=== PATIENT | male | born 1970 | race Caucasian/White ===

== ENCOUNTER 2018-04-18 23:22 | Inpatient (IN) | payer MEDICAID ==
[2018-04-18 23:46] VITALS: BMI 39.1
--- NOTE | 2018-04-19 00:18 | ED PDOC ---
Arrival/HPI - General Chief Complaint: GI Problem Time Seen by Provider: 04/19/18 00:06 Historian: Patient - History of Present Illness Narrative History of Present Illness (Text): 04/19/18 00:17 Archie Almanza is a 47 year old male, whose past medical history includes bariatric surgery and diabetes, who presents to the Emergency department complaining of fever and abdominal pain. Patient states he has been experiencing fever with associated chills, shaking, diffuse abdominal pain, and back pain since yesterday. Patient notes he has been constipated for the past 5 days. Patient states he recently underwent a gastric bypass in February 2018. Patient also complaining of dark urine and dysuria. Patient denies any fever, chills, chest pain, shortness of breath, nausea, vomiting, diarrhea, neck pain, headache, dizziness, or any other complaints. PMD: Dr. Echols Symptom Onset: Gradual Symptom Course: Unchanged Activities at Onset: Light Context: Home Past Medical History - Provider Review Nursing Documentation Reviewed: Yes Family/Social History - Physician Review Nursing Documentation Reviewed: Yes Family/Social History: Unknown Family HX Allergies/Home Meds Allergies/Adverse Reactions: Allergies No Known Allergies Allergy (Verified 04/19/18 00:12) Home Medications: Home Meds Medication Instructions Recorded Confirmed No Known Home Med 04/19/18 04/19/18 Review of Systems - Physician Review All systems were reviewed & negative as marked: Yes - Review of Systems Constitutional: Fevers, Other (+chills) Eyes: Normal ENT: Normal Respiratory: Normal. absent: SOB, Cough Cardiovascular: Normal. absent: Chest Pain Gastrointestinal: Abdominal Pain, Constipation. absent: Nausea, Vomiting Genitourinary Male: Dysuria Musculoskeletal: Normal. absent: Back Pain, Neck Pain Skin: Normal. absent: Rash Neurological: Normal. absent: Headache, Dizziness Endocrine: Normal Hemo/Lymphatic: Normal Psychiatric: Normal Physical Exam Vital Signs Reviewed: Yes Vital Signs Temp Pulse Resp BP Pulse Ox 04/19/18 02:58 100.0 F H 83 18 116/64 98 04/19/18 00:55 100.5 F H 04/18/18 23:50 100.5 F H 91 H 18 114/66 97 Temperature: Febrile Blood Pressure: Normal Pulse: Regular Respiratory Rate: Normal Appearance: Positive for: Well-Appearing, Non-Toxic, Comfortable Pain Distress: None Mental Status: Positive for: Alert and Oriented X 3 - Systems Exam Head: Present: Atraumatic, Normocephalic Pupils: Present: PERRL Extroacular Muscles: Present: EOMI Conjunctiva: Present: Normal Mouth: Present: Moist Mucous Membranes Neck: Present: Normal Range of Motion Respiratory/Chest: Present: Clear to Auscultation, Good Air Exchange. No: Respiratory Distress, Accessory Muscle Use Cardiovascular: Present: Regular Rate and Rhythm, Normal S1, S2. No: Murmurs Abdomen: No: Tenderness, Distention, Peritoneal Signs Back: Present: Normal Inspection Upper Extremity: Present: Normal Inspection. No: Cyanosis, Edema Lower Extremity: Present: Normal Inspection. No: Edema Neurological: Present: GCS=15, CN II-XII Intact, Speech Normal Skin: Present: Warm, Dry, Normal Color. No: Rashes Psychiatric: Present: Alert, Oriented x 3, Normal Insight, Normal Concentration Medical Decision Making ED Course and Treatment: 04/19/18 00:17 Impression: 47 year old male complaining of fever, chills, abdominal pain, back pain, constipation, dysuria, and dark urine. Differential Diagnosis included but are not limited to: Plan: -- EKG -- Chest X-ray -- Labs, VBG, blood cultures -- Urinalysis, urine cultures -- IV fluids -- Tylenol -- Reassess and disposition Progress Notes: 04/19/18 00:45 Reviewed EKG, sinus tachycardia at [address] LAD. Non-specific ST/T wave changes. 04/19/18 03:30 CT Abdomen and Pelvis shows: Lung bases: No acute findings. No mass. No consolidation. ABDOMEN: Liver: No acute findings. No mass. Gallbladder and bile ducts: No acute findings. No calcified stones. No ductal dilation. Pancreas: No acute findings. No mass. No ductal dilation. Spleen: No acute findings. No splenomegaly. Adrenals: No acute findings. No mass. Kidneys and ureters: No acute findings. No solid mass. No hydronephrosis. Stomach and bowel: No acute findings. No obstruction. No mucosal thickening. PELVIS: Appendix: No findings to suggest acute appendicitis. Bladder: No acute findings. No mass. Reproductive: No acute findings. ABDOMEN and PELVIS: Intraperitoneal space: No acute findings. No free air. No significant fluid collection. Bones/joints: No acute fracture. No dislocation. Soft tissues: No acute findings. Vasculature: No acute findings. No abdominal aortic aneurysm. Lymph nodes: No acute findings. No enlarged lymph nodes. IMPRESSION: No acute findings. 04/19/18 03:37 Case discussed with medical office coordinator satellite communications engineer, who is aware and agrees with plan. Case discussed with Dr. Hutson, who is aware and agrees with plan. Accepts pt in to hospitalist service. Pt will go to [facility] [place] [place] observation for fever, abdominal pain, flank pain, and UTI. - Lab Interpretations Lab Results: 04/19/18 00:30 04/19/18 00:30 Lab Results 04/19/18 00:30: Sodium 140, Chloride 99, Potassium 4.2, Carbon Dioxide 28, Anion Gap 18, BUN 13, Creatinine 1.0, Est GFR ( Amer) > 60, Est GFR (Non- Af Amer) > 60, Random Glucose 101, Calcium 9.5, Total Bilirubin 1.9 H, AST 33, ALT 32, Alkaline Phosphatase 66, Total Protein 8.0, Albumin 4.6, Globulin 3.4, Albumin/Globulin Ratio 1.4 04/19/18 00:30: pO2 26 L, VBG pH 7.38, VBG pCO2 51.0, VBG HCO3 30.2 H, VBG Total CO2 31.8 H, VBG O2 Sat (Calc) 48.0, VBG Base Excess 3.9 H, VBG Potassium 4.1, Sodium 137.0, Chloride 101.0, Glucose 100, Lactate 2.0, FiO2 21.0, Venous Blood Potassium 4.1 04/19/18 00:30: PT 14.0 H, INR 1.22 H, APTT 34.0 04/19/18 00:30: WBC 9.4, RBC 4.99, Hgb 13.9 L, Hct 40.9 L, MCV 82.0, MCH 27.9, MCHC 34.0, RDW 14.6 H, Plt Count 128, MPV 10.5, Gran % 85.8 H, Lymph % (Auto) 12.7 L, [place] % (Auto) 1.3, Eos % (Auto) 0.1 L, Baso % (Auto) 0.1, Gran # 8.05 H , Lymph # (Auto) 1.2, [place] # (Auto) 0.1, Eos # (Auto) 0.0, Baso # (Auto) 0.01 04/19/18 00:25: Urine Color Yellow, Urine Appearance Sl cloudy, Urine pH 7.0, Ur Specific [place] 1.010, Urine Protein Trace H, Urine Glucose (UA) Negative, Urine Ketones Trace H, Urine Blood Negative, Urine Nitrate Positive H, Urine Bilirubin Negative, Urine Urobilinogen 2.0 H, Ur Leukocyte Esterase Moderate H, Urine RBC 0 - 2, Urine WBC 1 - 3, Ur Epithelial Cells 0 - 2, Urine Bacteria Mod I have reviewed the lab results: Yes - RAD Interpretation Radiology Orders: 04/19/18 00:19 CHEST PORTABLE [RAD] Stat 04/19/18 01:10 ABD & PELVIS IV CONTRAST ONLY [CT] Stat Sprayer Operator: Radiologist - EKG Interpretation Interpreted by ED Physician: Yes Type: 12 lead EKG - Medication Orders Current Medication Orders: Ceftriaxone Sodium (Rocephin 1 Gram Ivpb) 1 gm in 100 mls @ 200 mls/hr IV ONCE STA PRN Reason: Protocol Stop: 04/19/18 04:03 Discontinued Medications Acetaminophen (Tylenol 325mg Tab) 650 mg PO STAT STA Stop: 04/19/18 00:21 Last Admin: 04/19/18 00:55 Dose: 650 mg MAR Pain/Vitals Document 04/19/18 00:55 IT (Rec: 04/19/18 00:55 IT [id number]) Vitals Temperature (97.6 F-99.6 F) 100.5 F Temperature Source Oral Sodium Chloride (Sodium Chloride 0.9%) 1,000 mls @ 999 mls/hr IV .Q1H1M STA Stop: 04/19/18 01:20 Last Admin: 04/19/18 00:55 Dose: 999 mls/hr eMAR Start Stop Document 04/19/18 00:55 IT (Rec: 04/19/18 00:55 IT [id number]) Intravenous Solution Start Date 04/19/18 Start Time 00:55 - Scribe Statement The provider has reviewed the documentation as recorded by the Mayuribfranny Forde Provider Scribe Attestation: All medical record entries made by the Scribe were at my direction and personally dictated by me. I have reviewed the chart and agree that the record accurately reflects my personal performance of the history, physical exam, medical decision making, and the department course for this patient. I have also personally directed, reviewed, and agree with the discharge instructions and disposition. Disposition/Present on Arrival - Present on Arrival Any Indicators Present on Arrival: No History of DVT/PE: No History of Uncontrolled Diabetes: No Urinary Catheter: No History of Decub. Ulcer: No History Surgical Site Infection Following: None - Disposition Have Diagnosis and Disposition been Completed?: Yes Diagnosis: Fever, Abdominal pain, Flank pain, UTI (urinary tract infection) Disposition: HOSPITALIZED Disposition Time: 03:42 Patient Plan: Observation Condition: STABLE Forms: [employer] (Iraqi)
[2018-04-19] MEDS ORDERED: Sodium Chloride 0.9% 1,000 ML IV STA (00:20)
[2018-04-19 00:45] LABS: BASO # 0.01 K/mm3 (0.0-2.0); BASO % 0.1 % (0.0-3.0); EOS % 0.1 % (1.5-5.0); GRAN # 8.05 (1.4-6.5); GRAN % 85.8 % (50.0-68.0); HEMOGLOBIN 13.9 g/dL (14.0-18.0); LYMPH # 1.2 (1.2-3.4); LYMPH % 12.7 % (22.0-35.0); MEAN CORPUSCULAR HEMOGLOBIN 27.9 pg (25.0-35.0); MEAN PLATELET VOLUME 10.5 fl (7.0-11.0); MONO # 0.1 (0.1-0.6); MONO % 1.3 % (1.0-6.0); RBC 4.99 10^6/uL (3.5-6.1); RED CELL DISTRIBUTION WIDTH 14.6 % (11.5-14.5); WHITE BLOOD COUNT 9.4 10^3/ul (4.5-11.0)
[2018-04-19 00:49] LABS: VENOUS BLOOD GAS BASE EXCESS 3.9 mmol/L (0.0-2.0); VENOUS BLOOD GAS PO2 26 mm/Hg (30-55); VENOUS BLOOD PH 7.38 (7.32-7.43)
[2018-04-19 00:52] LABS: ALB/GLOB RATIO 1.4 (1.1-1.8); ALBUMIN 4.6 g/dL (3.0-4.8); ALT/SGPT 32 U/L (7-56); AST/SGOT 33 U/L (17-59); BLOOD UREA NITROGEN 13 mg/dL (7-21); CALCIUM 9.5 mg/dL (8.4-10.5); GFR AFRICAN-AMERICAN > 60; GFR NON-AFRICAN AMERICAN > 60
[2018-04-19 00:54] LABS: INR 1.22 (0.93-1.08)
[2018-04-19 00:59] LABS: URINE BILIRUBIN NEGATIVE (NEGATIVE); URINE BLOOD NEGATIVE (NEGATIVE); URINE GLUCOSE (UA) NEGATIVE (NEGATIVE); URINE LEUKOCYTE ESTERASE MODERATE Leu/uL (NEGATIVE); URINE PROTEIN TRACE mg/dL (<30 mg/dL)
[2018-04-19 01:05] LABS: URINE APPEARANCE SL CLOUDY (CLEAR); URINE COLOR YELLOW (YELLOW)
[2018-04-19 01:15] LABS: URINE EPITHELIAL CELLS 0 - 2 /hpf (0-5); URINE RBC 0 - 2 /hpf (0-2)
[2018-04-19 01:16] LABS: URINE BACTERIA MOD (NEG)
[2018-04-19] MEDS ORDERED: Iohexol 350 MG/100 ML VIAL ONE (01:30)
[2018-04-19] MEDS ORDERED: cefTRIAXone 1 gm 1 GM/100 ML BAG IV STA (03:34)
[2018-04-19 04:19] LABS: VENOUS BLOOD GAS BASE EXCESS -0.1 mmol/L (0.0-2.0); VENOUS BLOOD GAS PO2 183 mm/Hg (30-55); VENOUS BLOOD PH 7.43 (7.32-7.43)
[2018-04-19] MEDS ORDERED: POLYETHYLENE GLYCOL 3350 17 GM/Dose PACKET PO STA (05:40)
[2018-04-19 07:28] LABS: BASO # 0.01 K/mm3 (0.0-2.0); BASO % 0.1 % (0.0-3.0); GRAN # 10.27 (1.4-6.5); HEMOGLOBIN 12.7 g/dL (14.0-18.0); LYMPH # 1.3 (1.2-3.4); LYMPH % 10.5 % (22.0-35.0); MEAN CELL VOLUME 82.2 fl (80.0-105.0); MEAN CORPUSCULAR HEMOGLOBIN 27.9 pg (25.0-35.0); MEAN CORPUSCULAR HGB CONC 33.9 g/dl (31.0-37.0); MEAN PLATELET VOLUME 10.3 fl (7.0-11.0); MONO # 0.7 (0.1-0.6); MONO % 5.4 % (1.0-6.0); RBC 4.56 10^6/uL (3.5-6.1); RED CELL DISTRIBUTION WIDTH 14.8 % (11.5-14.5); WHITE BLOOD COUNT 12.2 10^3/ul (4.5-11.0)
[2018-04-19] MEDS ORDERED: Sodium Chloride 0.9% 500 ML IV STA (07:44)
[2018-04-19 08:00] LABS: ALB/GLOB RATIO 1.3 (1.1-1.8); ALT/SGPT 38 U/L (7-56); AST/SGOT 44 U/L (17-59); BLOOD UREA NITROGEN 10 mg/dL (7-21); CALCIUM 8.9 mg/dL (8.4-10.5); GFR AFRICAN-AMERICAN > 60; GFR NON-AFRICAN AMERICAN > 60
--- NOTE | 2018-04-19 08:55 | RAD ---
Date of service: 04/19/2018 HISTORY: Sepsis Patient COMPARISON: No prior. FINDINGS: LUNGS: No active pulmonary disease. PLEURA: No significant pleural effusion identified, no pneumothorax apparent. CARDIOVASCULAR: Normal. OSSEOUS STRUCTURES: No significant abnormalities. VISUALIZED UPPER ABDOMEN: Normal. OTHER FINDINGS: None. IMPRESSION: No active disease.
[2018-04-19] MEDS ORDERED: cefTRIAXone 1 gm 1 GM/100 ML BAG IVPB SCH (10:00)
[2018-04-19 10:06] LABS: HDL CHOLESTEROL 40 mg/dL (29-60)
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
--- NOTE | 2018-04-19 10:14 | CT ---
Date of service: 04/19/2018 PROCEDURE: CT Abdomen and Pelvis with Oral contrast. HISTORY: abdominal pain Abdominal COMPARISON: None. TECHNIQUE: Contiguous axial images of the abdomen and pelvis. . Coronal and Sagittal reformats generated. Radiation dose: Total exam DLP = 1204.69 mGy-cm. This CT exam was performed using one or more of the following dose reduction techniques: Automated exposure control, adjustment of the mA and/or kV according to patient size, and/or use of iterative reconstruction technique. Contrast dose: 96 cc Omnipaque 350 FINDINGS: LOWER THORAX: Mild passive/dependent type atelectasis both posterior lower lung barnard. No focal consolidation effusion or basilar pneumothorax. LIVER: Liver is upper limits of normal/borderline enlarged measuring nearly 19 cm in CC dimension. No obvious hepatic mass collection or calcification . GALLBLADDER AND BILE DUCTS: Gallbladder physiologically distended. No evidence of intraluminal gallbladder calculi. PANCREAS: Unremarkable. No mass. No ductal dilatation. SPLEEN: Spleen is upper limits of normal measuring nearly 13 cm in CC AP dimension. Small splenic calcification consistent with prior exposure to granulomatous disease process. ADRENALS: No adrenal lesions. . KIDNEYS AND URETERS: Kidneys demonstrate symmetric nephrograms. No evidence of nephrolithiasis or hydronephrosis. . BLADDER: Urinary bladder is incompletely distended which in part accounts thick-walled appearance however muscular hypertrophy may contribute. Cystitis not excluded. REPRODUCTIVE: Prostate gland is mildly enlarged measuring approximately 4.7 cm in transverse dimension. Prostate gland encroaches slightly into the floor of the urinary bladder. APPENDIX: There is a normal caliber partially air-filled appendix of which also contains a small appendicolith. No evidence of inflammatory changes in the adjacent mesentery to suggest acute appendicitis. BOWEL: Evaluation of the bowel is somewhat limited due to the lack of oral contrast. The stomach is incompletely distended. Apparent postoperative changes of gastric sleeve procedure however clinical correlation with surgical history recommended. The visualized loops of small bowel exhibit normal contour and caliber. No evidence of acute mechanical small bowel obstruction. Colon appears grossly unremarkable. No definitive evidence of mural wall thickening PERITONEUM: Unremarkable. No fluid collection. No free air. LYMPH NODES: Unremarkable. No enlarged lymph nodes. VASCULATURE: Unremarkable. No aortic aneurysm. BONES: Mild chronic appearing anterior stature loss of a few lower thoracic segments. No acute compression fractures. Bilateral pars interarticularis defects seen at the L4-L5 level with approximately grade 1- grade 2 spondylolisthesis. Multilevel degenerative spondylosis. OTHER FINDINGS: None. IMPRESSION: No acute intra abdominal pathology. Calcified granulomata within the splenic parenchyma consistent with prior exposure to granulomatous disease process. Postoperative changes gastric sleeve procedure. Mild prostatic enlargement which encroaches into the full urinary bladder. Urinary bladder wall slightly thickened likely due to incomplete distention to muscular hypertrophy. Correlation with urinalysis to exclude cystitis. Bilateral pars defects L4-L5 level with approximately grade 1- grade 2 spondylolisthesis. Multilevel degenerative spondylosis of the thoracic and lumbar spine
[2018-04-19 10:17] LABS: LDL CHOLESTEROL 71 mg/dL (0-129)
[2018-04-19] MEDS: Enoxaparin 40 mg Syringe SC SCH (10:40)
--- NOTE | 2018-04-19 11:22 | CARD ---
APPROVED REPORT Date of service: 04/19/2018 EKG Measurement Heart [id number] <Conclusion> Sinus tachycardia Left Anterior Mike-Block.
[2018-04-19] MEDS: Insulin Reg-LOW-Coverage SC SCH ×3 (11:41→22:00)
[2018-04-19] MEDS ORDERED: Piperacillin/Tazobact 3.375 gm 100 ML IVPB SCH (12:00)
[2018-04-19] MEDS ORDERED: Vancomycin 1gm in NS 250ml 1 GM/250 ML BAG IVPB STA (15:09)
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
[2018-04-19] MEDS: Meropenem IV 1 gm in NS 50 ML IVPB SCH ×2 (18:29→22:01)
[2018-04-20] MEDS: Meropenem IV 1 gm in NS 50 ML IVPB SCH ×3 (06:02→21:27)
[2018-04-20 06:41] LABS: BASO # 0.01 K/mm3 (0.0-2.0); BASO % 0.2 % (0.0-3.0); GRAN # 5.38 (1.4-6.5); GRAN % 90.3 % (50.0-68.0); HEMOGLOBIN 12.6 g/dL (14.0-18.0); LYMPH # 0.3 (1.2-3.4); MEAN CELL VOLUME 82.1 fl (80.0-105.0); MEAN CORPUSCULAR HEMOGLOBIN 27.8 pg (25.0-35.0); MEAN CORPUSCULAR HGB CONC 33.9 g/dl (31.0-37.0); MEAN PLATELET VOLUME 10.7 fl (7.0-11.0); MONO # 0.3 (0.1-0.6); MONO % 4.5 % (1.0-6.0); PLATELET COUNT 96 10^3/uL (120.0-450.0); RBC 4.53 10^6/uL (3.5-6.1); RED CELL DISTRIBUTION WIDTH 14.9 % (11.5-14.5)
[2018-04-20 07:13] LABS: ALB/GLOB RATIO 1.2 (1.1-1.8); ALBUMIN 3.8 g/dL (3.0-4.8); ALT/SGPT 69 U/L (7-56); AST/SGOT 65 U/L (17-59); BLOOD UREA NITROGEN 12 mg/dL (7-21); CALCIUM 8.5 mg/dL (8.4-10.5); GFR AFRICAN-AMERICAN > 60; GFR NON-AFRICAN AMERICAN > 60
[2018-04-20 08:00] LABS: LYMPHOCYTE 8 % (22.0-35.0); MONOCYTE 2 % (1.0-6.0); NEUTROPHIL 90 % (50.0-70.0); PLATELET ESTIMATE LOW (NORMAL)
[2018-04-20] MEDS: Insulin Reg-LOW-Coverage SC SCH ×4 (08:12→23:00)
--- NOTE | 2018-04-20 09:22 | CP.PCM.PN ---
<Armando Polanco - Last Filed: 04/20/18 16:04> Subjective - Date & Time of Evaluation Date of Evaluation: 04/20/18 Time of Evaluation: 10:45 - Subjective Subjective: Armando Polanco DO PGY-1, [employer] Medicine Progress Note Pt seen and examined at bedside. Pt spiked fever overnight, last temp 103 at 6 am. Pt states he still has dysuria, but denies burning with urination, flank pain, abd pain, nausea, or vomiting. Pt on IV antibiotics. Tolerated soup last night. Objective - Vital Signs/Intake and Output Vital Signs (last 24 hours): Temp Pulse Resp BP Pulse Ox 100.1 F H 100 H 20 111/74 97 04/20/18 07:05 04/20/18 06:00 04/20/18 06:00 04/20/18 06:00 04/20/18 06:00 - Medications Medications: Current Medications Enoxaparin Sodium (Lovenox) 40 mg SC DAILY [facility] PRN Reason: Protocol Last Admin: 04/19/18 10:40 Dose: 40 mg Famotidine (Pepcid) 40 mg PO HS [facility] Last Admin: 04/19/18 22:01 Dose: 40 mg Meropenem (Merrem Iv 1 Gm Premix) 50 mls @ 100 mls/hr IVPB Q8 [facility] PRN Reason: Protocol Last Admin: 04/20/18 06:02 Dose: 100 mls/hr Potassium Chloride 40 meq/ (Sodium Chloride) 1,020 mls @ 150 mls/hr IV .Q6H48M [facility] Ibuprofen (Motrin Tab) 600 mg PO Q6H PRN PRN Reason: Fever >100.4 F Insulin Human Regular (Humulin R Low) 0 units SC ACHS [facility] PRN Reason: Protocol Last Admin: 04/20/18 08:12 Dose: Not Given Tamsulosin HCl (Flomax) 0.4 mg PO DAILY [facility] Last Admin: 04/19/18 12:19 Dose: 0.4 mg Thiamine HCl (Vitamin B1 Tab) 100 mg PO DAILY [facility] Last Admin: 04/19/18 11:43 Dose: 100 mg - Labs Labs: PT 14.0 SECONDS (9.4-12.5) H 04/19/18 00:30 INR 1.22 (0.93-1.08) H 04/19/18 00:30 APTT 34.0 Seconds (25.1-36.5) 04/19/18 00:30 - Constitutional Appears: Non-toxic, No Acute Distress - Head Exam Head Exam: ATRAUMATIC, NORMAL INSPECTION, NORMOCEPHALIC - Eye Exam Eye Exam: EOMI, Normal appearance, PERRL - ENT Exam ENT Exam: Mucous Membranes Moist, Normal Oropharynx - Neck Exam Neck Exam: Full ROM, Normal Inspection - Respiratory Exam Respiratory Exam: Clear to Ausculation Bilateral, NORMAL BREATHING PATTERN - Cardiovascular Exam Cardiovascular Exam: REGULAR RHYTHM, +S1, +S2 - GI/Abdominal Exam GI & Abdominal Exam: Soft Additional comments: Mild distension, normal bowel sounds x4, mild tenderness to palpation in surgical scar areas s/p gastric sleeve procedure - Extremities Exam Extremities Exam: Full ROM, Normal Capillary Refill, Normal Inspection - Back Exam Back Exam: Full ROM, NORMAL INSPECTION - Neurological Exam Neurological Exam: Alert, Awake, CN II-XII Intact, Normal Gait, Oriented x3 - Psychiatric Exam Psychiatric exam: Normal Affect, Normal Mood - Skin Skin Exam: Dry, Intact, Normal Color, Warm Assessment and Plan - Assessment and Plan (Free Text) Assessment: 47 y o male PMHx HLD, DM, HTN, GERD, S/p bariatric surgery approx 1.5 mos ago, presented [place] [facility] [place] with a chief complaint of new onset fever and abdominal pain x 1 day, and constipation x 5 days. Urine cx growing gram neg rods, final results pending. Pt started on broad spectrum antibiotics. Plan: Acute Abdominal Pain 2/[address] AP 04/19 - mild prostatic enlargement encroaching into urinary bladder; urinary bladder wall thickening; cystitis not excluded; no evidence of small bowel obstruction Pt. w/ complaints of dysuria and lower abdominal pain Pt febrile, Motrin q 6 h PRN for fevers due to pt's elevated LFTs, T bili elevated on admission Leukocytosis resolved UA Nitrate+, and moderate leukocyte esterase Urine cx growing gram neg rods, final results pending ID Consulted, recs appreciated C/w meropenem 1 g q 8 h IVPB (day 2) S/p 1 x dose vancomycin U/s abd performed today, f/u results Continue to monitor clinically Constipation No evidence of acute obstruction on CT A+P Encourage ambulation and PO hydration Miralax PRN Low fat high fiber diet Pt had BM today, reports no diarrhea Hx DM Pt. stated no longer on metformin at home after bariatric surgery A1C pending ISS regular Cont to trend fingersticks Hx HTN Pt stated no longer on antihypertensives at home after bariatric surgery Continue to trend vitals Hx HLD C/w Pravastatin 40 mg daily Lipid panel wnl Hx GERD C/w Famotidine GI/ DVT PPX: Famotidine/ Lovenox Pt seen, examined with, and plan d/w Dr. Nguyen, attending Armando Polanco DO PGY-1, [employer] Pager #[phone] <Sunil Nguyen - Last Filed: 04/20/18 17:24> Objective - Vital Signs/Intake and Output Vital Signs (last 24 hours): Temp Pulse Resp BP Pulse Ox 98.9 F 100 H 20 111/74 97 04/20/18 11:58 04/20/18 06:00 04/20/18 06:00 04/20/18 06:00 04/20/18 06:00 - Medications Medications: Current Medications Enoxaparin Sodium (Lovenox) 40 mg SC DAILY [facility] PRN Reason: Protocol Last Admin: 04/20/18 09:50 Dose: 40 mg Famotidine (Pepcid) 40 mg PO HS [facility] Last Admin: 04/19/18 22:01 Dose: 40 mg Meropenem (Merrem Iv 1 Gm Premix) 50 mls @ 100 mls/hr IVPB Q8 [facility] PRN Reason: Protocol Last Admin: 04/20/18 13:34 Dose: 100 mls/hr Potassium Chloride 40 meq/ (Sodium Chloride) 1,020 mls @ 150 mls/hr IV .Q6H48M [facility] Last Admin: 04/20/18 09:49 Dose: 150 mls/hr Ibuprofen (Motrin Tab) 600 mg PO Q6H PRN PRN Reason: Fever >100.4 F Last Admin: 04/20/18 10:58 Dose: 600 mg Insulin Human Regular (Humulin R Low) 0 units SC ACHS [facility] PRN Reason: Protocol Last Admin: 04/20/18 12:00 Dose: Not Given Tamsulosin HCl (Flomax) 0.4 mg PO DAILY [facility] Last Admin: 04/20/18 09:50 Dose: 0.4 mg Thiamine HCl (Vitamin B1 Tab) 100 mg PO DAILY [facility] Last Admin: 04/20/18 09:50 Dose: 100 mg - Labs Labs: PT 14.0 SECONDS (9.4-12.5) H 04/19/18 00:30 INR 1.22 (0.93-1.08) H 04/19/18 00:30 APTT 34.0 Seconds (25.1-36.5) 04/19/18 00:30 Attending/Attestation - Attestation I have personally seen and examined this patient.: Yes I have fully participated in the care of the patient.: Yes I have reviewed all pertinent clinical information, including history, physical exam and plan: Yes Notes (Text): 04/20/18 17:19 47 year old male with past medical history of diabetes, hypertension and dyslipidemia who presented with fever and lower abdominal pain. CT abd/pelvis showed cystitis and mild prostatic enlargement. UCx is growing gram negative rods. Leukocytosis has improved although he continues to have fever this morning. Continue with IV antibiotics. ID is following. LFTs are elevated today. Will continue to trend. Abdominal ultrasound was done today which shows hepatomegaly, hepatic steatosis, and mild splenomegaly. Sunil Nguyen MD Hospitalist.
[2018-04-20] MEDS: Enoxaparin 40 mg Syringe SC SCH (09:50)
--- NOTE | 2018-04-20 15:45 | US ---
Date of service: 04/20/2018 HISTORY: transaminitis COMPARISON: April 19, 2018. CT abdomen and pelvis TECHNIQUE: Sonographic evaluation of the abdomen. FINDINGS: LIVER: Measures 17.3 cm. Hepatopedal blood flow. Fatty infiltration manifest ultrasonographically as increased echogenicity of the liver parenchyma. No mass. No intrahepatic bile duct dilatation. GALLBLADDER: Unremarkable. No gallstones. COMMON BILE DUCT: Measures 6.3 mm. No stones. No dilatation. PANCREAS: Obscured by overlying bowel gas. Non diagnostic assessment of the pancreas RIGHT KIDNEY: Measures 6 x 11.2cm. Normal echogenicity. No calculus, mass, or hydronephrosis. LEFT KIDNEY: Measures 5.7 x 12.7cm. Normal echogenicity. No calculus, mass, or hydronephrosis. SPLEEN: Mild splenomegaly. Orthogonal measurements 5.1 x 5 x 13.6 cm. AORTA: No aneurysmal dilatation. IVC: Unremarkable. OTHER FINDINGS: None. IMPRESSION: Hepatomegaly, hepatic steatosis without focal abnormality. Mild splenomegaly. Limitations of the existing study: Absence of oral and IV contrast in the assessment of abdominal retroperitoneal and of pelvic viscera nondiagnostic study of the pancreas
--- NOTE | 2018-04-20 22:14 | PN ---
DATE: 04/20/2018 SUBJECTIVE: The patient is in bed, in no acute distress, nontoxic. He is having fevers. PHYSICAL EXAMINATION: VITAL SIGNS: Temperature of 102.6, blood pressure is 118/50, respiratory rate of 18, heart rate 69. HEENT: Examination of HEENT is unremarkable. NECK: Supple. LUNGS: Have decreased breath sounds. HEART: Normal S1 and S2. ABDOMEN: Soft. LABORATORY DATA: Laboratory examination reveals white count of 6000, hemoglobin of 12. Chemistries are noted. BUN of 12, creatinine of 0.7. PSA is 3.7. Urinalysis is noted. HIV is nonreactive. Microbiology reveals the blood cultures are negative. Urine culture has a gram-negative rosie. The patient is on meropenem. The patient had abdominal ultrasound, although it is a limited study. Dr. Antonio Manuel writes that it is a limited study because of absence of oral and IV contrast. This is an abdominal ultrasound. ASSESSMENT AND PLAN: We will continue to follow the fever. The patient did have a CAT scan of the abdomen and pelvis, which results are reviewed. We are waiting for the identification and sensitivity of the gram-negative rosie to Urology evaluation. yMron Graham MD
[2018-04-21] MEDS: Meropenem IV 1 gm in NS 50 ML IVPB SCH ×3 (05:52→22:00)
[2018-04-21 07:39] LABS: BASO # 0.01 K/mm3 (0.0-2.0); BASO % 0.3 % (0.0-3.0); EOS % 0.3 % (1.5-5.0); GRAN # 2.34 (1.4-6.5); GRAN % 76.8 % (50.0-68.0); HEMOGLOBIN 11.8 g/dL (14.0-18.0); LYMPH # 0.5 (1.2-3.4); LYMPH % 16.7 % (22.0-35.0); MEAN CELL VOLUME 81.7 fl (80.0-105.0); MEAN CORPUSCULAR HEMOGLOBIN 26.9 pg (25.0-35.0); MEAN PLATELET VOLUME 10.8 fl (7.0-11.0); MONO # 0.2 (0.1-0.6); MONO % 5.9 % (1.0-6.0); RBC 4.38 10^6/uL (3.5-6.1); RED CELL DISTRIBUTION WIDTH 14.6 % (11.5-14.5); WHITE BLOOD COUNT 3.1 10^3/ul (4.5-11.0)
[2018-04-21 07:53] LABS: ALB/GLOB RATIO 1.1 (1.1-1.8); ALBUMIN 3.2 g/dL (3.0-4.8); ALT/SGPT 82 U/L (7-56); AST/SGOT 72 U/L (17-59); BLOOD UREA NITROGEN 10 mg/dL (7-21); CALCIUM 8.1 mg/dL (8.4-10.5); GFR AFRICAN-AMERICAN > 60; GFR NON-AFRICAN AMERICAN > 60
[2018-04-21 08:14] VITALS: RESP 20
--- NOTE | 2018-04-21 08:37 | CP.PCM.PN ---
<Armando Polanco - Last Filed: 04/21/18 13:57> Subjective - Date & Time of Evaluation Date of Evaluation: 04/21/18 Time of Evaluation: 06:45 - Subjective Subjective: Armando Polanco DO PGY-1, [employer] Medicine Progress Note Pt seen and examined at bedside. Denies any acute complaints. States his dysuria is improving, denies abdominal pain currently. Tolerating PO diet and ambulating without concerns. Pt spiking fevers overnight, given Motrin by RN. Objective - Vital Signs/Intake and Output Vital Signs (last 24 hours): Temp Pulse Resp BP Pulse Ox 97.5 F L 74 20 100/69 98 04/21/18 06:00 04/21/18 06:00 04/21/18 06:00 04/21/18 06:00 04/21/18 06:00 Intake and Output: 04/21/18 04/21/18 06:59 18:59 Intake Total 5040 Balance 5040 - Medications Medications: Current Medications Enoxaparin Sodium (Lovenox) 40 mg SC DAILY [facility] PRN Reason: Protocol Last Admin: 04/20/18 09:50 Dose: 40 mg Famotidine (Pepcid) 40 mg PO HS [facility] Last Admin: 04/20/18 21:28 Dose: 40 mg Meropenem (Merrem Iv 1 Gm Premix) 50 mls @ 100 mls/hr IVPB Q8 [facility] PRN Reason: Protocol Last Admin: 04/21/18 05:52 Dose: 100 mls/hr Potassium Chloride 40 meq/ (Sodium Chloride) 1,020 mls @ 150 mls/hr IV .Q6H48M [facility] Last Admin: 04/21/18 03:00 Dose: 150 mls/hr Ibuprofen (Motrin Tab) 600 mg PO Q6H PRN PRN Reason: Fever >100.4 F Last Admin: 04/21/18 00:29 Dose: 600 mg Insulin Human Regular (Humulin R Low) 0 units SC ACHS [facility] PRN Reason: Protocol Last Admin: 04/20/18 23:00 Dose: Not Given Tamsulosin HCl (Flomax) 0.4 mg PO DAILY [facility] Last Admin: 04/20/18 09:50 Dose: 0.4 mg Thiamine HCl (Vitamin B1 Tab) 100 mg PO DAILY [facility] Last Admin: 04/20/18 09:50 Dose: 100 mg - Labs Labs: 04/21/18 07:00 04/21/18 07:00 PT 14.0 SECONDS (9.4-12.5) H 04/19/18 00:30 INR 1.22 (0.93-1.08) H 04/19/18 00:30 APTT 34.0 Seconds (25.1-36.5) 04/19/18 00:30 - Constitutional Appears: Non-toxic, No Acute Distress - Head Exam Head Exam: ATRAUMATIC, NORMAL INSPECTION, NORMOCEPHALIC - Eye Exam Eye Exam: EOMI, Normal appearance, PERRL - ENT Exam ENT Exam: Mucous Membranes Moist, Normal Oropharynx - Neck Exam Neck Exam: Full ROM, Normal Inspection - Respiratory Exam Respiratory Exam: Clear to Ausculation Bilateral, NORMAL BREATHING PATTERN - Cardiovascular Exam Cardiovascular Exam: REGULAR RHYTHM, +S1, +S2 - GI/Abdominal Exam GI & Abdominal Exam: Soft, Normal Bowel Sounds Additional comments: No tenderness to palpation, nondistended, no suprapubic tenderness, no CVA tenderness - Extremities Exam Extremities Exam: Full ROM, Normal Capillary Refill, Normal Inspection - Back Exam Back Exam: Full ROM, NORMAL INSPECTION - Neurological Exam Neurological Exam: Alert, Awake, CN II-XII Intact, Normal Gait, Oriented x3 - Psychiatric Exam Psychiatric exam: Normal Affect, Normal Mood - Skin Skin Exam: Dry, Intact, Normal Color, Warm Assessment and Plan - Assessment and Plan (Free Text) Assessment: 47 y o male PMHx HLD, DM, HTN, GERD, S/p sleeve gastrectomy approx 1.5 mos ago, presented to [facility] [place] [facility] on 04/18/18 with a chief complaint of new onset fever and abdominal pain x 1 day, and constipation x 5 days. Urine cx growing E. coli, hadley -sensitive. Pt currently on antibiotics with fevers, dysuria and abd pain improving. Plan: Acute Abdominal Pain 2/[address] AP 04/19 - mild prostatic enlargement encroaching into urinary bladder; urinary bladder wall thickening; cystitis not excluded; no evidence of small bowel obstruction U/s abd 04/20 - hepatomegaly, hepatic steatosis without focal abnormality, mild splenomegaly. Pt. w/ complaints of dysuria and lower abdominal pain Pt febrile, Motrin q 6 h PRN for fevers, LFTs elevated, Hepatitis panel pending , T bili elevated on admission Leukocytosis resolved UA Nitrate+, and moderate leukocyte esterase Urine cx growing E. coli hadley-sensitive ID Consulted, recs appreciated C/w meropenem 1 g q 8 h IVPB (day 3) S/p 1 x dose vancomycin Continue to monitor clinically Constipation Resolved, pt had BM yesterday, continue to monitor Miralax PRN, encourage ambulation Hx DM Pt. stated no longer on metformin at home after bariatric surgery A1C 5.8 ISS regular Continue to trend fingersticks Hx HTN Pt stated no longer on antihypertensives at home after bariatric surgery Continue to trend vitals Hx HLD C/w Pravastatin 40 mg daily Lipid panel wnl Hx GERD C/w Famotidine GI/ DVT PPX: Famotidine/ Lovenox Pt seen, examined with, and plan discussed with Dr. Nguyen, attending Armando Polanco DO PGY-1, [employer] Pager #[phone] <Sunil Nguyen - Last Filed: 04/21/18 18:29> Objective - Vital Signs/Intake and Output Vital Signs (last 24 hours): Temp Pulse Resp BP Pulse Ox 98.3 F 88 20 103/73 97 04/21/18 14:00 04/21/18 14:00 04/21/18 14:00 04/21/18 14:00 04/21/18 14:00 Intake and Output: 04/21/18 04/21/18 06:59 18:59 Intake Total 5040 480 Output Total 475 Balance 5040 5 - Medications Medications: Current Medications Enoxaparin Sodium (Lovenox) 40 mg SC DAILY [facility] PRN Reason: Protocol Last Admin: 04/21/18 10:07 Dose: 40 mg Famotidine (Pepcid) 40 mg PO HS [facility] Last Admin: 04/20/18 21:28 Dose: 40 mg Meropenem (Merrem Iv 1 Gm Premix) 50 mls @ 100 mls/hr IVPB Q8 [facility] PRN Reason: Protocol Last Admin: 04/21/18 15:29 Dose: 100 mls/hr Potassium Chloride 40 meq/ (Sodium Chloride) 1,020 mls @ 150 mls/hr IV .Q6H48M [facility] Last Admin: 04/21/18 12:59 Dose: 150 mls/hr Ibuprofen (Motrin Tab) 600 mg PO Q6H PRN PRN Reason: Fever >100.4 F Last Admin: 04/21/18 10:06 Dose: 600 mg Insulin Human Regular (Humulin R Low) 0 units SC ACHS [facility] PRN Reason: Protocol Last Admin: 04/21/18 17:31 Dose: Not Given Tamsulosin HCl (Flomax) 0.4 mg PO DAILY [facility] Last Admin: 04/21/18 10:07 Dose: 0.4 mg Thiamine HCl (Vitamin B1 Tab) 100 mg PO DAILY [facility] Last Admin: 04/21/18 10:07 Dose: 100 mg - Labs Labs: 04/21/18 07:00 04/21/18 07:00 PT 14.0 SECONDS (9.4-12.5) H 04/19/18 00:30 INR 1.22 (0.93-1.08) H 04/19/18 00:30 APTT 34.0 Seconds (25.1-36.5) 04/19/18 00:30 Attending/Attestation - Attestation I have personally seen and examined this patient.: Yes I have fully participated in the care of the patient.: Yes I have reviewed all pertinent clinical information, including history, physical exam and plan: Yes Notes (Text): 04/21/18 18:27 47 year old male with past medical history of diabetes, hypertension and dyslipidemia who presented with fever and lower abdominal pain. CT abd/pelvis showed cystitis and mild prostatic enlargement. UCx is growing E Coli. Leukocytosis has improved although he continues to have intermitten fevers. He is on iv antibiotics. Consider repeat CT abd/pelvis tomorrow if fevers persistent as per ID. LFTs are mildly elevated. Will continue to monitor. Hepatitis panel was negative and abdominal ultrasound showed hepatomegaly, hepatic steatosis, and mild splenomegaly. Sunil Nguyen MD Hospitalist.
[2018-04-21] MEDS: Enoxaparin 40 mg Syringe SC SCH (10:07)
[2018-04-21 12:07] LABS: HEPATITIS A IGM NEGATIVE (NEGATIVE); HEPATITIS B CORE AB NEGATIVE (NEGATIVE)
[2018-04-21 12:19] LABS: HEPATITIS C ANTIBODY NEGATIVE (NEGATIVE)
[2018-04-21 13:41] LABS: HEPATITIS B SURFACE AG Negative (NEGATIVE)
--- NOTE | 2018-04-21 15:38 | CP.PCM.PN ---
Subjective - Date & Time of Evaluation Date of Evaluation: 04/21/18 Time of Evaluation: 11:10 - Subjective Subjective: Patient is having fevers but is feeling better, no nausea, fever spikes are fever and far in-between. No more dysuria. Objective - Vital Signs/Intake and Output Vital Signs (last 24 hours): Temp Pulse Resp BP Pulse Ox 97.5 F L 74 20 100/69 98 04/21/18 06:00 04/21/18 06:00 04/21/18 06:00 04/21/18 06:00 04/21/18 06:00 Intake and Output: 04/21/18 04/21/18 06:59 18:59 Intake Total 5040 Balance 5040 - Medications Medications: Current Medications Enoxaparin Sodium (Lovenox) 40 mg SC DAILY [facility] PRN Reason: Protocol Last Admin: 04/21/18 10:07 Dose: 40 mg Famotidine (Pepcid) 40 mg PO HS [facility] Last Admin: 04/20/18 21:28 Dose: 40 mg Meropenem (Merrem Iv 1 Gm Premix) 50 mls @ 100 mls/hr IVPB Q8 [facility] PRN Reason: Protocol Last Admin: 04/21/18 05:52 Dose: 100 mls/hr Potassium Chloride 40 meq/ (Sodium Chloride) 1,020 mls @ 150 mls/hr IV .Q6H48M [facility] Last Admin: 04/21/18 03:00 Dose: 150 mls/hr Ibuprofen (Motrin Tab) 600 mg PO Q6H PRN PRN Reason: Fever >100.4 F Last Admin: 04/21/18 10:06 Dose: 600 mg Insulin Human Regular (Humulin R Low) 0 units SC ACHS [facility] PRN Reason: Protocol Last Admin: 04/20/18 23:00 Dose: Not Given Tamsulosin HCl (Flomax) 0.4 mg PO DAILY [facility] Last Admin: 04/21/18 10:07 Dose: 0.4 mg Thiamine HCl (Vitamin B1 Tab) 100 mg PO DAILY [facility] Last Admin: 04/21/18 10:07 Dose: 100 mg - Labs Labs: 04/21/18 07:00 04/21/18 07:00 PT 14.0 SECONDS (9.4-12.5) H 04/19/18 00:30 INR 1.22 (0.93-1.08) H 04/19/18 00:30 APTT 34.0 Seconds (25.1-36.5) 04/19/18 00:30 - Constitutional Appears: Chronically Ill - Head Exam Head Exam: NORMAL INSPECTION - Neck Exam Neck Exam: absent: Meningismus - Respiratory Exam Respiratory Exam: Decreased Breath Sounds - Cardiovascular Exam Cardiovascular Exam: +S1, +S2 - GI/Abdominal Exam GI & Abdominal Exam: Soft. absent: Tenderness Assessment and Plan - Assessment and Plan (Free Text) Plan: Assessment Consider sepsis due to urinary tract infection with E.coli (consider pyelonephritis) HTN DM dyslipidemia GERD S/P bariatric surgery Plan continue Merrem day 3 and will re-check blood and urine cx because of the persistent fever - if the fever persists tomorrow, will repeat imaging of the abdomen and pelvis will continue to monitor clinically
[2018-04-21] MEDS: Insulin Reg-LOW-Coverage SC SCH ×3 (17:30→22:00)
[2018-04-21 22:51] LABS: TOTAL PSA 5.2 ng/mL (< or = 4.0)
[2018-04-22] MEDS: Meropenem IV 1 gm in NS 50 ML IVPB SCH ×3 (05:41→22:47)
[2018-04-22 06:45] LABS: BASO # 0.02 K/mm3 (0.0-2.0); BASO % 0.5 % (0.0-3.0); EOS # 0.1 (0.0-0.7); EOS % 1.6 % (1.5-5.0); GRAN # 2.18 (1.4-6.5); GRAN % 58.5 % (50.0-68.0); HEMOGLOBIN 11.5 g/dL (14.0-18.0); LYMPH % 27.6 % (22.0-35.0); MEAN CELL VOLUME 81.9 fl (80.0-105.0); MEAN CORPUSCULAR HEMOGLOBIN 27.1 pg (25.0-35.0); MEAN PLATELET VOLUME 10.7 fl (7.0-11.0); MONO # 0.4 (0.1-0.6); MONO % 11.8 % (1.0-6.0); RBC 4.25 10^6/uL (3.5-6.1); RED CELL DISTRIBUTION WIDTH 14.8 % (11.5-14.5); WHITE BLOOD COUNT 3.7 10^3/ul (4.5-11.0)
[2018-04-22 07:14] LABS: ALBUMIN 3.1 g/dL (3.0-4.8); ALT/SGPT 87 U/L (7-56); AST/SGOT 71 U/L (17-59); BLOOD UREA NITROGEN 9 mg/dL (7-21); CALCIUM 8.2 mg/dL (8.4-10.5); GFR AFRICAN-AMERICAN > 60; GFR NON-AFRICAN AMERICAN > 60
[2018-04-22] MEDS: Enoxaparin 40 mg Syringe SC SCH (09:36)
--- NOTE | 2018-04-22 11:46 | CT ---
Date of service: 04/22/2018 PROCEDURE: CT Abdomen and Pelvis without intravenous contrast HISTORY: r/0 pyelo COMPARISON: None. TECHNIQUE: Technique. Contrast dose: None Radiation dose: Total exam DLP = 1100 mGy-cm. This CT exam was performed using one or more of the following dose reduction techniques: Automated exposure control, adjustment of the mA and/or kV according to patient size, and/or use of iterative reconstruction technique. FINDINGS: LOWER THORAX: Small pleural effusions. Suture line in the stomach LIVER: Unremarkable. No gross lesion or ductal dilatation. GALLBLADDER AND BILE DUCTS: Unremarkable. PANCREAS: Unremarkable. No gross lesion or ductal dilatation. SPLEEN: Unremarkable. ADRENALS: Unremarkable. No mass. KIDNEYS AND URETERS: Unremarkable. No hydronephrosis. No solid mass. VASCULATURE: Unremarkable. No aortic aneurysm. BOWEL: Unremarkable. No obstruction. No gross mural thickening. APPENDIX: Unremarkable. Normal appendix. PERITONEUM: Minimal free fluid in the pelvis LYMPH NODES: Unremarkable. No enlarged lymph nodes. BLADDER: Unremarkable. REPRODUCTIVE: Unremarkable. 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 IMPRESSION: No acute intra-abdominal findings. No evidence of hydronephrosis or perinephric stranding
--- NOTE | 2018-04-22 12:50 | CP.PCM.PN ---
<Armando Polanco - Last Filed: 04/22/18 21:21> Subjective - Date & Time of Evaluation Date of Evaluation: 04/22/18 Time of Evaluation: 07:40 - Subjective Subjective: Armando Polanco DO PGY-1, [employer] Medicine Progress Note Pt seen and examined at bedside. Per overnight report pt could not sleep due to bouts of low grade fever. Tmax 100.5 at 22:00 last night. Pt denied chills, states he has been able to tolerate PO diet. Pt states he has decreased pain with urination and dysuria, denied flank pain. Objective - Vital Signs/Intake and Output Vital Signs (last 24 hours): Temp Pulse Resp BP Pulse Ox 97.9 F 68 20 100/78 100 04/22/18 06:00 04/22/18 06:00 04/22/18 06:00 04/22/18 06:00 04/22/18 06:00 Intake and Output: 04/22/18 04/22/18 06:59 18:59 Intake Total 3600 Balance 3600 - Medications Medications: Current Medications Enoxaparin Sodium (Lovenox) 40 mg SC DAILY [facility] PRN Reason: Protocol Last Admin: 04/22/18 09:36 Dose: 40 mg Famotidine (Pepcid) 40 mg PO HS [facility] Last Admin: 04/21/18 22:00 Dose: 40 mg Meropenem (Merrem Iv 1 Gm Premix) 50 mls @ 100 mls/hr IVPB Q8 [facility] PRN Reason: Protocol Last Admin: 04/22/18 05:41 Dose: 100 mls/hr Potassium Chloride 40 meq/ (Sodium Chloride) 1,020 mls @ 150 mls/hr IV .Q6H48M [facility] Last Admin: 04/22/18 05:42 Dose: 150 mls/hr Ibuprofen (Motrin Tab) 600 mg PO Q6H PRN PRN Reason: Fever >100.4 F Last Admin: 04/21/18 22:56 Dose: 600 mg Insulin Human Regular (Humulin R Low) 0 units SC ACHS [facility] PRN Reason: Protocol Last Admin: 04/21/18 22:00 Dose: Not Given Tamsulosin HCl (Flomax) 0.4 mg PO DAILY [facility] Last Admin: 04/22/18 09:36 Dose: 0.4 mg Thiamine HCl (Vitamin B1 Tab) 100 mg PO DAILY [facility] Last Admin: 04/22/18 09:36 Dose: 100 mg - Labs Labs: 04/22/18 06:20 04/22/18 06:20 PT 14.0 SECONDS (9.4-12.5) H 04/19/18 00:30 INR 1.22 (0.93-1.08) H 04/19/18 00:30 APTT 34.0 Seconds (25.1-36.5) 04/19/18 00:30 - Constitutional Appears: Non-toxic, No Acute Distress - Head Exam Head Exam: ATRAUMATIC, NORMAL INSPECTION, NORMOCEPHALIC - Eye Exam Eye Exam: EOMI, Normal appearance, PERRL - ENT Exam ENT Exam: Mucous Membranes Moist, Normal Oropharynx - Neck Exam Neck Exam: Full ROM, Normal Inspection - Respiratory Exam Respiratory Exam: Clear to Ausculation Bilateral, NORMAL BREATHING PATTERN - Cardiovascular Exam Cardiovascular Exam: REGULAR RHYTHM, +S1, +S2 - GI/Abdominal Exam GI & Abdominal Exam: Soft, Normal Bowel Sounds Additional comments: No abdominal tenderness to palpation, no suprapubic tenderness, neg CVA tenderness b/l - Extremities Exam Extremities Exam: Full ROM, Normal Capillary Refill, Normal Inspection - Back Exam Back Exam: Full ROM, NORMAL INSPECTION - Neurological Exam Neurological Exam: Alert, Awake, CN II-XII Intact, Normal Gait, Oriented x3 - Psychiatric Exam Psychiatric exam: Normal Affect, Normal Mood - Skin Skin Exam: Dry, Intact, Normal Color, Warm Assessment and Plan - Assessment and Plan (Free Text) Assessment: 47 y o male PMHx HLD, DM, HTN, GERD, 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 Urine cx growing E. coli, hadley -sensitive. Pt currently on antibiotics with fevers, dysuria and abd pain improving. Plan: Acute Abdominal Pain 2/[address] AP 04/19 - mild prostatic enlargement encroaching into urinary bladder; urinary bladder wall thickening; cystitis not excluded; no evidence of small bowel obstruction Repeat CT AP 04/22: no acute intraabdominal findings, no perinephric stranding or hydronephrosis U/s abd 04/20 - hepatomegaly, hepatic steatosis without focal abnormality, mild splenomegaly. Pt. w/ complaints of dysuria and lower abdominal pain, improving since admission Pt febrile, Motrin q 6 h PRN for fevers, LFTs elevated, Hepatitis panel neg, T bili elevated on admission Leukocytosis resolved UA Nitrate+, and moderate leukocyte esterase Urine cx growing E. coli hadley-sensitive ID Consulted, recs appreciated C/w meropenem 1 g q 8 h IVPB (day 4) S/p 1 x dose vancomycin Continue to monitor clinically Constipation Resolved, pt having BM, continue to monitor Miralax PRN, encourage ambulation Hx DM Pt. stated no longer on metformin at home after bariatric surgery A1C 5.8 ISS regular Continue to trend fingersticks Hx HTN Pt stated no longer on antihypertensives at home after bariatric surgery Continue to trend vitals Hx HLD C/w Pravastatin 40 mg daily Lipid panel wnl Hx GERD C/w Famotidine GI/ DVT PPX: Famotidine/ Lovenox Pt seen, examined with, and plan discussed with Dr. Nguyen, attending Armando Polanco DO PGY-1, [employer] Pager #[phone] <Sunil Nguyen - Last Filed: 04/23/18 07:20> Objective - Vital Signs/Intake and Output Vital Signs (last 24 hours): Temp Pulse Resp BP Pulse Ox 98.8 F 84 20 103/71 97 04/22/18 14:00 04/22/18 14:00 04/22/18 14:00 04/22/18 14:00 04/22/18 14:00 - Medications Medications: Current Medications Enoxaparin Sodium (Lovenox) 40 mg SC DAILY [facility] PRN Reason: Protocol Last Admin: 04/22/18 09:36 Dose: 40 mg Famotidine (Pepcid) 40 mg PO HS [facility] Last Admin: 04/22/18 22:48 Dose: 40 mg Meropenem (Merrem Iv 1 Gm Premix) 50 mls @ 100 mls/hr IVPB Q8 [facility] PRN Reason: Protocol Last Admin: 04/23/18 06:06 Dose: 100 mls/hr Potassium Chloride 40 meq/ (Sodium Chloride) 1,020 mls @ 150 mls/hr IV .Q6H48M [facility] Last Admin: 04/22/18 05:42 Dose: 150 mls/hr Ibuprofen (Motrin Tab) 600 mg PO Q6H PRN PRN Reason: Fever >100.4 F Last Admin: 04/21/18 22:56 Dose: 600 mg Insulin Human Regular (Humulin R Low) 0 units SC ACHS [facility] PRN Reason: Protocol Last Admin: 04/22/18 22:43 Dose: Not Given Tamsulosin HCl (Flomax) 0.4 mg PO DAILY [facility] Last Admin: 04/22/18 09:36 Dose: 0.4 mg Thiamine HCl (Vitamin B1 Tab) 100 mg PO DAILY [facility] Last Admin: 04/22/18 09:36 Dose: 100 mg - Labs Labs: 04/23/18 06:00 04/22/18 06:20 PT 14.0 SECONDS (9.4-12.5) H 04/19/18 00:30 INR 1.22 (0.93-1.08) H 04/19/18 00:30 APTT 34.0 Seconds (25.1-36.5) 04/19/18 00:30 Attending/Attestation - Attestation I have personally seen and examined this patient.: Yes I have fully participated in the care of the patient.: Yes I have reviewed all pertinent clinical information, including history, physical exam and plan: Yes Notes (Text): 04/22/18 47 year old male with past medical history of diabetes, hypertension and dyslipidemia who presented with fever and lower abdominal pain. CT abd/pelvis showed cystitis and mild prostatic enlargement. UCx is growing E Coli. Leukocytosis has improved. Fever trend has come down (tmax on 100.5 last night) . Repeat CT abd/pelvis today was negative. He is on iv antibiotics; ID is following. LFTs are mildly elevated. Will continue to monitor. Hepatitis panel was negative and abdominal ultrasound showed hepatomegaly, hepatic steatosis, and mild splenomegaly. Sunil Nguyen MD Hospitalist.
--- NOTE | 2018-04-22 15:52 | CP.PCM.PN ---
Subjective - Date & Time of Evaluation Date of Evaluation: 04/22/18 Time of Evaluation: 11:55 - Subjective Subjective: Still had low grade fever overnight but the patient did not have chills, feeling better today. Objective - Vital Signs/Intake and Output Vital Signs (last 24 hours): Temp Pulse Resp BP Pulse Ox 98.8 F 84 20 103/71 97 04/22/18 14:00 04/22/18 14:00 04/22/18 14:00 04/22/18 14:00 04/22/18 14:00 Intake and Output: 04/22/18 04/22/18 06:59 18:59 Intake Total 3600 720 Balance 3600 720 - Medications Medications: Current Medications Enoxaparin Sodium (Lovenox) 40 mg SC DAILY [facility] PRN Reason: Protocol Last Admin: 04/22/18 09:36 Dose: 40 mg Famotidine (Pepcid) 40 mg PO HS [facility] Last Admin: 04/21/18 22:00 Dose: 40 mg Meropenem (Merrem Iv 1 Gm Premix) 50 mls @ 100 mls/hr IVPB Q8 [facility] PRN Reason: Protocol Last Admin: 04/22/18 15:29 Dose: 100 mls/hr Potassium Chloride 40 meq/ (Sodium Chloride) 1,020 mls @ 150 mls/hr IV .Q6H48M [facility] Last Admin: 04/22/18 05:42 Dose: 150 mls/hr Ibuprofen (Motrin Tab) 600 mg PO Q6H PRN PRN Reason: Fever >100.4 F Last Admin: 04/21/18 22:56 Dose: 600 mg Insulin Human Regular (Humulin R Low) 0 units SC ACHS [facility] PRN Reason: Protocol Last Admin: 04/21/18 22:00 Dose: Not Given Tamsulosin HCl (Flomax) 0.4 mg PO DAILY [facility] Last Admin: 04/22/18 09:36 Dose: 0.4 mg Thiamine HCl (Vitamin B1 Tab) 100 mg PO DAILY [facility] Last Admin: 04/22/18 09:36 Dose: 100 mg - Labs Labs: 04/22/18 06:20 04/22/18 06:20 PT 14.0 SECONDS (9.4-12.5) H 04/19/18 00:30 INR 1.22 (0.93-1.08) H 04/19/18 00:30 APTT 34.0 Seconds (25.1-36.5) 04/19/18 00:30 - Constitutional Appears: Chronically Ill - Head Exam Head Exam: NORMAL INSPECTION - Neck Exam Neck Exam: absent: Meningismus - Respiratory Exam Respiratory Exam: Decreased Breath Sounds - Cardiovascular Exam Cardiovascular Exam: +S1, +S2 - GI/Abdominal Exam GI & Abdominal Exam: Soft. absent: Tenderness Assessment and Plan - Assessment and Plan (Free Text) Plan: Assessment Consider sepsis due to urinary tract infection with E.coli (consider pyelonephritis) HTN DM dyslipidemia GERD S/P bariatric surgery Plan on Merrem day 4 repeat blood cx are negative, repeat imaging of the abdomen and pelvis did not show acute intra-abdominal infection - should complete 10-14 days of antibiotics and can be switched to PO antibiotics when ready for discharge
[2018-04-22] MEDS: Insulin Reg-LOW-Coverage SC SCH ×2 (19:06→22:43)
[2018-04-23] MEDS: Meropenem IV 1 gm in NS 50 ML IVPB SCH (06:06)
[2018-04-23 06:56] LABS: BASO # 0.01 K/mm3 (0.0-2.0); BASO % 0.3 % (0.0-3.0); EOS # 0.1 (0.0-0.7); EOS % 1.6 % (1.5-5.0); GRAN # 2.23 (1.4-6.5); GRAN % 59.6 % (50.0-68.0); HEMOGLOBIN 12.1 g/dL (14.0-18.0); LYMPH % 26.2 % (22.0-35.0); MEAN CELL VOLUME 81.2 fl (80.0-105.0); MEAN CORPUSCULAR HEMOGLOBIN 26.8 pg (25.0-35.0); MEAN CORPUSCULAR HGB CONC 33.1 g/dl (31.0-37.0); MEAN PLATELET VOLUME 10.6 fl (7.0-11.0); MONO # 0.5 (0.1-0.6); MONO % 12.3 % (1.0-6.0); RBC 4.51 10^6/uL (3.5-6.1); RED CELL DISTRIBUTION WIDTH 14.9 % (11.5-14.5); WHITE BLOOD COUNT 3.7 10^3/ul (4.5-11.0)
[2018-04-23 07:26] LABS: ALBUMIN 3.1 g/dL (3.0-4.8); ALT/SGPT 71 U/L (7-56); AST/SGOT 48 U/L (17-59); BLOOD UREA NITROGEN 10 mg/dL (7-21); CALCIUM 8.3 mg/dL (8.4-10.5); GFR AFRICAN-AMERICAN > 60; GFR NON-AFRICAN AMERICAN > 60
[2018-04-23 07:41] VITALS: BP 116/78; PULSE 79; TEMP 98.4; O2SAT 99
[2018-04-23] MEDS: Enoxaparin 40 mg Syringe SC SCH (09:43)
[2018-04-23] MEDS: Insulin Reg-LOW-Coverage SC SCH (09:43)
--- NOTE | 2018-04-23 15:14 | CP.PCM.PN ---
Subjective - Date & Time of Evaluation Date of Evaluation: 04/23/18 Time of Evaluation: 12:35 - Subjective Subjective: No more fevers, no abdominal pain, no dysuria currently. Objective - Vital Signs/Intake and Output Vital Signs (last 24 hours): Temp Pulse Resp BP Pulse Ox 98.4 F 79 20 116/78 99 04/23/18 06:00 04/23/18 06:00 04/23/18 06:00 04/23/18 06:00 04/23/18 06:00 - Medications Medications: Current Medications Enoxaparin Sodium (Lovenox) 40 mg SC DAILY [facility] PRN Reason: Protocol Last Admin: 04/23/18 09:43 Dose: 40 mg Famotidine (Pepcid) 40 mg PO HS [facility] Last Admin: 04/22/18 22:48 Dose: 40 mg Meropenem (Merrem Iv 1 Gm Premix) 50 mls @ 100 mls/hr IVPB Q8 [facility] PRN Reason: Protocol Last Admin: 04/23/18 06:06 Dose: 100 mls/hr Potassium Chloride 40 meq/ (Sodium Chloride) 1,020 mls @ 150 mls/hr IV .Q6H48M [facility] Last Admin: 04/22/18 05:42 Dose: 150 mls/hr Ibuprofen (Motrin Tab) 600 mg PO Q6H PRN PRN Reason: Fever >100.4 F Last Admin: 04/21/18 22:56 Dose: 600 mg Insulin Human Regular (Humulin R Low) 0 units SC ACHS [facility] PRN Reason: Protocol Last Admin: 04/23/18 09:43 Dose: Not Given Tamsulosin HCl (Flomax) 0.4 mg PO DAILY [facility] Last Admin: 04/23/18 09:43 Dose: 0.4 mg Thiamine HCl (Vitamin B1 Tab) 100 mg PO DAILY [facility] Last Admin: 04/23/18 09:43 Dose: 100 mg - Labs Labs: 04/23/18 06:00 04/23/18 06:00 PT 14.0 SECONDS (9.4-12.5) H 04/19/18 00:30 INR 1.22 (0.93-1.08) H 04/19/18 00:30 APTT 34.0 Seconds (25.1-36.5) 04/19/18 00:30 - Constitutional Appears: Non-toxic, Chronically Ill - Head Exam Head Exam: NORMAL INSPECTION - ENT Exam ENT Exam: Mucous Membranes Moist - Neck Exam Neck Exam: absent: Meningismus - Respiratory Exam Respiratory Exam: Decreased Breath Sounds - Cardiovascular Exam Cardiovascular Exam: +S1, +S2 - GI/Abdominal Exam GI & Abdominal Exam: Soft. absent: Tenderness Assessment and Plan - Assessment and Plan (Free Text) Plan: Assessment Consider sepsis due to urinary tract infection with E.coli (consider pyelonephritis) HTN DM dyslipidemia GERD S/P bariatric surgery Plan on Merrem day 5; repeat blood cx are negative, repeat imaging of the abdomen and pelvis did not show acute intra-abdominal infection - should complete 10-14 days of antibiotics and can be switched to PO antibiotics when ready for discharge - discussed with Dr. Nguyen's team - patient should follow up with Urology as an outpatient
--- NOTE | 2018-04-23 20:44 | CP.PCM.DIS ---
<Zohaib Garcia - Last Filed: 04/25/18 16:38> Provider - Provider Date of Admission: 04/20/18 07:58 Attending physician: Sunil Nguyen MD Primary care physician: Nataliya Echols MD Consults: Dr. Hernandez -ID Time Spent in preparation of Discharge (in minutes): 35 Hospital Course - Lab Results Lab Results: Micro Results 04/21/18 14:25 Blood Blood Culture - Preliminary NO GROWTH AFTER 48 HOURS 04/21/18 14:45 Blood Blood Culture - Preliminary NO GROWTH AFTER 48 HOURS 04/21/18 15:33 Urine Urine Culture - Final No Growth (<1,000 CFU/ML) Most Recent Lab Values WBC 3.7 10^3/ul (4.5-11.0) L 04/23/18 06:00 RBC 4.51 10^6/uL (3.5-6.1) 04/23/18 06:00 Hgb 12.1 g/dL (14.0-18.0) L 04/23/18 06:00 Hct 36.6 % (42.0-52.0) L 04/23/18 06:00 MCV 81.2 fl (80.0-105.0) 04/23/18 06:00 MCH 26.8 pg (25.0-35.0) 04/23/18 06:00 MCHC 33.1 g/dl (31.0-37.0) 04/23/18 06:00 RDW 14.9 % (11.5-14.5) H 04/23/18 06:00 Plt Count 117 10^3/uL (120.0-450.0) L 04/23/18 06:00 MPV 10.6 fl (7.0-11.0) 04/23/18 06:00 Gran % 59.6 % (50.0-68.0) 04/23/18 06:00 Lymph % (Auto) 26.2 % (22.0-35.0) 04/23/18 06:00 [place] % (Auto) 12.3 % (1.0-6.0) H 04/23/18 06:00 Eos % (Auto) 1.6 % (1.5-5.0) 04/23/18 06:00 Baso % (Auto) 0.3 % (0.0-3.0) 04/23/18 06:00 Gran # 2.23 (1.4-6.5) 04/23/18 06:00 Lymph # (Auto) 1.0 (1.2-3.4) L 04/23/18 06:00 [place] # (Auto) 0.5 (0.1-0.6) 04/23/18 06:00 Eos # (Auto) 0.1 (0.0-0.7) 04/23/18 06:00 Baso # (Auto) 0.01 K/mm3 (0.0-2.0) 04/23/18 06:00 Neutrophils % (Manual) 90 % (50.0-70.0) H 04/20/18 06:10 Lymphocytes % (Manual) 8 % (22.0-35.0) L 04/20/18 06:10 Monocytes % (Manual) 2 % (1.0-6.0) 04/20/18 06:10 Platelet Evaluation Low (NORMAL) 04/20/18 06:10 PT 14.0 SECONDS (9.4-12.5) H 04/19/18 00:30 INR 1.22 (0.93-1.08) H 04/19/18 00:30 APTT 34.0 Seconds (25.1-36.5) 04/19/18 00:30 pO2 183 mm/Hg (30-55) H 04/19/18 04:09 VBG pH 7.43 (7.32-7.43) 04/19/18 04:09 VBG pCO2 36.0 (40-60) L 04/19/18 04:09 VBG HCO3 23.9 mmol/l (21-28) 04/19/18 04:09 VBG Total CO2 25.0 mmol.L (22-28) 04/19/18 04:09 VBG O2 Sat (Calc) 99.6 % (40-65) H 04/19/18 04:09 VBG Base Excess -0.1 mmol/L (0.0-2.0) L 04/19/18 04:09 VBG Potassium 3.5 mmol/L (3.6-5.2) L 04/19/18 04:09 Sodium 137.0 mmol/L (132-148) 04/19/18 04:09 Chloride 106.0 mmol/L (98-107) 04/19/18 04:09 Glucose 122 mg/dl (75-110) H 04/19/18 04:09 Lactate 0.8 mmol/L (0.7-2.1) 04/19/18 04:09 FiO2 21.0 % 04/19/18 04:09 Sodium 142 mmol/L (132-148) 04/23/18 06:00 Potassium 4.3 mmol/L (3.6-5.0) 04/23/18 06:00 Chloride 106 mmol/L (98-107) 04/23/18 06:00 Carbon Dioxide 27 mmol/L (21-33) 04/23/18 06:00 Anion Gap 13 (10-20) 04/23/18 06:00 BUN 10 mg/dL (7-21) 04/23/18 06:00 Creatinine 0.6 mg/dl (0.8-1.5) L 04/23/18 06:00 Est GFR ( Amer) > 60 04/23/18 06:00 Est GFR (Non-Af Amer) > 60 04/23/18 06:00 POC Glucose (mg/dL) 97 mg/dL (65-110) 04/23/18 11:19 Random Glucose 123 mg/dL (70-110) H 04/23/18 06:00 Hemoglobin A1c 5.8 % (4.2-6.5) 04/19/18 07:30 Calcium 8.3 mg/dL (8.4-10.5) L 04/23/18 06:00 Phosphorus 4.9 mg/dL (2.5-4.5) H 04/19/18 07:00 Magnesium 2.2 mg/dL (1.7-2.2) 04/19/18 07:00 Total Bilirubin 0.6 mg/dL (0.2-1.3) 04/23/18 06:00 Direct Bilirubin 0.6 mg/dL (0.0-0.4) H 04/21/18 07:30 AST 48 U/L (17-59) 04/23/18 06:00 ALT 71 U/L (7-56) H 04/23/18 06:00 Alkaline Phosphatase 118 U/L (38-126) 04/23/18 06:00 Total Protein 6.2 g/dL (5.8-8.3) 04/23/18 06:00 Albumin 3.1 g/dL (3.0-4.8) 04/23/18 06:00 Globulin 3.1 gm/dL 04/23/18 06:00 Albumin/Globulin Ratio 1.0 (1.1-1.8) L 04/23/18 06:00 Triglycerides 61 mg/dL (35-160) 04/19/18 07:30 Cholesterol 135 mg/dL (130-200) 04/19/18 07:30 LDL Cholesterol Direct 71 mg/dL (0-129) 04/19/18 07:30 HDL Cholesterol 40 mg/dL (29-60) 04/19/18 07:30 Prostate Specific Ag 3.7 ng/mL (0.00-2.5) H 04/20/18 06:10 Free PSA 1.2 ng/mL 04/20/18 09:00 % Free PSA 23 % (calc) (>25) L 04/20/18 09:00 Total PSA 5.2 ng/mL (< or = 4.0) H 04/20/18 09:00 Venous Blood Potassium 3.5 mmol/L (3.6-5.2) L 04/19/18 04:09 Urine Color Yellow (YELLOW) 04/19/18 00:25 Urine Appearance Sl cloudy (CLEAR) 04/19/18 00:25 Urine pH 7.0 (4.7-8.0) 04/19/18 00:25 Ur Specific Beggs 1.010 (1.005-1.035) 04/19/18 00:25 Urine Protein Trace mg/dL (<30 mg/dL) H 04/19/18 00:25 Urine Glucose (UA) Negative mg/dL (NEGATIVE) 04/19/18 00:25 Urine Ketones Trace mg/dL (NEGATIVE) H 04/19/18 00:25 Urine Blood Negative (NEGATIVE) 04/19/18 00:25 Urine Nitrate Positive (NEGATIVE) H 04/19/18 00:25 Urine Bilirubin Negative (NEGATIVE) 04/19/18 00:25 Urine Urobilinogen 2.0 E.U./dL (<1 E.U./dL) H 04/19/18 00:25 Ur Leukocyte Esterase Moderate Carmen/uL (NEGATIVE) H 04/19/18 00:25 Urine RBC 0 - 2 /hpf (0-2) 04/19/18 00:25 Urine WBC 1 - 3 /hpf (0-6) 04/19/18 00:25 Ur Epithelial Cells 0 - 2 /hpf (0-5) 04/19/18 00:25 Urine Bacteria Mod (NEG) 04/19/18 00:25 Hepatitis A IgM Ab Negative (NEGATIVE) 04/21/18 07:30 Hep Bs Antigen Negative (NEGATIVE) 04/21/18 07:30 Hep B Core IgM Ab Negative (NEGATIVE) 04/21/18 07:30 Hepatitis C Antibody Negative (NEGATIVE) 04/21/18 07:30 HIV 1&2 Ag/Ab, 4th Gen Nonreactive (Nonreactive) 04/19/18 07:30 - Hospital Course Hospital Course: 47 y o male PMHx HLD, DM, HTN, GERD, 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 Urine cx grew E. coli, hadley- sensitive. Pt was placed on Meropenem but continued to have fevers; his dysuria and abd pain improved. Repeat cultures did not show growth. Patient's T Bili and LFT's were mildly elevated but imaging did not reveal any obstruction and T Bili and LFT's improved without intervention. On day of discharge patient was afebrile X >36 hours. At this point patient was deemed stable for discharge with Cipro for 10 days bid and Flomax. Patient was advised to follow up with Dr. Echols and his urologist. Discharge Exam - Head Exam Head Exam: ATRAUMATIC, NORMAL INSPECTION, NORMOCEPHALIC - Eye Exam Eye Exam: EOMI, Normal appearance, PERRL Pupil Exam: NORMAL ACCOMODATION, PERRL - Respiratory Exam Respiratory Exam: Clear to PA & Lateral, NORMAL BREATHING PATTERN, UNREMARKABLE - Cardiovascular Exam Cardiovascular Exam: REGULAR RHYTHM, RRR, +S1, +S2. absent: Gallop, JVD, Rubs, Systolic Murmur - GI/Abdominal Exam GI & Abdominal Exam: Normal Bowel Sounds, Unremarkable - Neurological Exam Neurological exam: Alert, CN II-XII Intact, Normal Gait, Oriented x3, Reflexes Normal - Psychiatric Exam Psychiatric exam: Normal Affect, Normal Mood - Skin Skin Exam: Dry, Intact, Normal Color, Warm Discharge Plan - Discharge Medications Prescriptions: Ciprofloxacin [Cipro] 500 mg PO BID #20 tab Tamsulosin [Flomax] 0.4 mg PO DAILY #30 cap - Follow Up Plan Condition: STABLE Disposition: HOME/ ROUTINE Instructions: Heart Healthy Diet, Diabetes Diet , Fever, Adult (DC), Urinary Tract Infection in Women (DC), Urinary Tract Infection in Men (DC), Acute Abdominal Pain (DC), Acute Abdominal Pain (GEN), Dysuria (GEN) Additional Instructions: Follow up with primary care Doctor within one week from discharge Take antibiotics as prescribed Ciproflaxin 500 mg Tab twice a day for 10 days Please follow up with your Urologist within one week If symptoms persist or worsen please come back to the ED Referrals: Nataliya Echols MD [Primary Care Provider] - <Sunil Nguyen - Last Filed: 04/25/18 19:19> Provider - Provider Date of Admission: 04/20/18 07:58 Attending physician: Sunil Nguyen MD Primary care physician: Nataliya Echols MD Hospital Course - Lab Results Lab Results: Micro Results 04/21/18 14:25 Blood Blood Culture - Preliminary NO GROWTH AFTER 4 DAYS 04/21/18 14:45 Blood Blood Culture - Preliminary NO GROWTH AFTER 4 DAYS 04/21/18 15:33 Urine Urine Culture - Final No Growth (<1,000 CFU/ML) Most Recent Lab Values WBC 3.7 10^3/ul (4.5-11.0) L 04/23/18 06:00 RBC 4.51 10^6/uL (3.5-6.1) 04/23/18 06:00 Hgb 12.1 g/dL (14.0-18.0) L 04/23/18 06:00 Hct 36.6 % (42.0-52.0) L 04/23/18 06:00 MCV 81.2 fl (80.0-105.0) 04/23/18 06:00 MCH 26.8 pg (25.0-35.0) 04/23/18 06:00 MCHC 33.1 g/dl (31.0-37.0) 04/23/18 06:00 RDW 14.9 % (11.5-14.5) H 04/23/18 06:00 Plt Count 117 10^3/uL (120.0-450.0) L 04/23/18 06:00 MPV 10.6 fl (7.0-11.0) 04/23/18 06:00 Gran % 59.6 % (50.0-68.0) 04/23/18 06:00 Lymph % (Auto) 26.2 % (22.0-35.0) 04/23/18 06:00 [place] % (Auto) 12.3 % (1.0-6.0) H 04/23/18 06:00 Eos % (Auto) 1.6 % (1.5-5.0) 04/23/18 06:00 Baso % (Auto) 0.3 % (0.0-3.0) 04/23/18 06:00 Gran # 2.23 (1.4-6.5) 04/23/18 06:00 Lymph # (Auto) 1.0 (1.2-3.4) L 04/23/18 06:00 [place] # (Auto) 0.5 (0.1-0.6) 04/23/18 06:00 Eos # (Auto) 0.1 (0.0-0.7) 04/23/18 06:00 Baso # (Auto) 0.01 K/mm3 (0.0-2.0) 04/23/18 06:00 Neutrophils % (Manual) 90 % (50.0-70.0) H 04/20/18 06:10 Lymphocytes % (Manual) 8 % (22.0-35.0) L 04/20/18 06:10 Monocytes % (Manual) 2 % (1.0-6.0) 04/20/18 06:10 Platelet Evaluation Low (NORMAL) 04/20/18 06:10 PT 14.0 SECONDS (9.4-12.5) H 04/19/18 00:30 INR 1.22 (0.93-1.08) H 04/19/18 00:30 APTT 34.0 Seconds (25.1-36.5) 04/19/18 00:30 pO2 183 mm/Hg (30-55) H 04/19/18 04:09 VBG pH 7.43 (7.32-7.43) 04/19/18 04:09 VBG pCO2 36.0 (40-60) L 04/19/18 04:09 VBG HCO3 23.9 mmol/l (21-28) 04/19/18 04:09 VBG Total CO2 25.0 mmol.L (22-28) 04/19/18 04:09 VBG O2 Sat (Calc) 99.6 % (40-65) H 04/19/18 04:09 VBG Base Excess -0.1 mmol/L (0.0-2.0) L 04/19/18 04:09 VBG Potassium 3.5 mmol/L (3.6-5.2) L 04/19/18 04:09 Sodium 137.0 mmol/L (132-148) 04/19/18 04:09 Chloride 106.0 mmol/L (98-107) 04/19/18 04:09 Glucose 122 mg/dl (75-110) H 04/19/18 04:09 Lactate 0.8 mmol/L (0.7-2.1) 04/19/18 04:09 FiO2 21.0 % 04/19/18 04:09 Sodium 142 mmol/L (132-148) 04/23/18 06:00 Potassium 4.3 mmol/L (3.6-5.0) 04/23/18 06:00 Chloride 106 mmol/L (98-107) 04/23/18 06:00 Carbon Dioxide 27 mmol/L (21-33) 04/23/18 06:00 Anion Gap 13 (10-20) 04/23/18 06:00 BUN 10 mg/dL (7-21) 04/23/18 06:00 Creatinine 0.6 mg/dl (0.8-1.5) L 04/23/18 06:00 Est GFR ( Amer) > 60 04/23/18 06:00 Est GFR (Non-Af Amer) > 60 04/23/18 06:00 POC Glucose (mg/dL) 97 mg/dL (65-110) 04/23/18 11:19 Random Glucose 123 mg/dL (70-110) H 04/23/18 06:00 Hemoglobin A1c 5.8 % (4.2-6.5) 04/19/18 07:30 Calcium 8.3 mg/dL (8.4-10.5) L 04/23/18 06:00 Phosphorus 4.9 mg/dL (2.5-4.5) H 04/19/18 07:00 Magnesium 2.2 mg/dL (1.7-2.2) 04/19/18 07:00 Total Bilirubin 0.6 mg/dL (0.2-1.3) 04/23/18 06:00 Direct Bilirubin 0.6 mg/dL (0.0-0.4) H 04/21/18 07:30 AST 48 U/L (17-59) 04/23/18 06:00 ALT 71 U/L (7-56) H 04/23/18 06:00 Alkaline Phosphatase 118 U/L (38-126) 04/23/18 06:00 Total Protein 6.2 g/dL (5.8-8.3) 04/23/18 06:00 Albumin 3.1 g/dL (3.0-4.8) 04/23/18 06:00 Globulin 3.1 gm/dL 04/23/18 06:00 Albumin/Globulin Ratio 1.0 (1.1-1.8) L 04/23/18 06:00 Triglycerides 61 mg/dL (35-160) 04/19/18 07:30 Cholesterol 135 mg/dL (130-200) 04/19/18 07:30 LDL Cholesterol Direct 71 mg/dL (0-129) 04/19/18 07:30 HDL Cholesterol 40 mg/dL (29-60) 04/19/18 07:30 Prostate Specific Ag 3.7 ng/mL (0.00-2.5) H 04/20/18 06:10 Free PSA 1.2 ng/mL 04/20/18 09:00 % Free PSA 23 % (calc) (>25) L 04/20/18 09:00 Total PSA 5.2 ng/mL (< or = 4.0) H 04/20/18 09:00 Prostate Cancer Risk See above result 04/20/18 09:00 Venous Blood Potassium 3.5 mmol/L (3.6-5.2) L 04/19/18 04:09 Urine Color Yellow (YELLOW) 04/19/18 00:25 Urine Appearance Sl cloudy (CLEAR) 04/19/18 00:25 Urine pH 7.0 (4.7-8.0) 04/19/18 00:25 Ur Specific [place] 1.010 (1.005-1.035) 04/19/18 00:25 Urine Protein Trace mg/dL (<30 mg/dL) H 04/19/18 00:25 Urine Glucose (UA) Negative mg/dL (NEGATIVE) 04/19/18 00:25 Urine Ketones Trace mg/dL (NEGATIVE) H 04/19/18 00:25 Urine Blood Negative (NEGATIVE) 04/19/18 00:25 Urine Nitrate Positive (NEGATIVE) H 04/19/18 00:25 Urine Bilirubin Negative (NEGATIVE) 04/19/18 00:25 Urine Urobilinogen 2.0 E.U./dL (<1 E.U./dL) H 04/19/18 00:25 Ur Leukocyte Esterase Moderate Carmen/uL (NEGATIVE) H 04/19/18 00:25 Urine RBC 0 - 2 /hpf (0-2) 04/19/18 00:25 Urine WBC 1 - 3 /hpf (0-6) 04/19/18 00:25 Ur Epithelial Cells 0 - 2 /hpf (0-5) 04/19/18 00:25 Urine Bacteria Mod (NEG) 04/19/18 00:25 Hepatitis A IgM Ab Negative (NEGATIVE) 04/21/18 07:30 Hep Bs Antigen Negative (NEGATIVE) 04/21/18 07:30 Hep B Core IgM Ab Negative (NEGATIVE) 04/21/18 07:30 Hepatitis C Antibody Negative (NEGATIVE) 04/21/18 07:30 HIV 1&2 Ag/Ab, 4th Gen Nonreactive (Nonreactive) 04/19/18 07:30 Attending/Attestation - Attestation I have personally seen and examined this patient.: Yes I have fully participated in the care of the patient.: Yes I have reviewed all pertinent clinical information, including history, physical exam and plan: Yes Notes (Text): 04/25/18 19:17 47 year old male with past medical history of diabetes, hypertension and dyslipidemia who presented with fever and lower abdominal pain. CT abd/pelvis showed cystitis and mild prostatic enlargement. UCx grew E Coli. He was started on iv antibiotics and his leukocytosis improved and fever resolved. LFTs were mildly elevated. Hepatitis panel was negative and abdominal ultrasound showed hepatomegaly, hepatic steatosis, and mild splenomegaly. Overall patient's symptoms improved. He is discharged home on po antibiotics. Follow up with pmd to monitor LFTs. Strongly recommended to follow up with urologist. Sunil Nguyen MD Hospitalist.
== END 2018-04-23 14:22 | disposition home or self-care (01) | DRG 321 ==
LOC: ED 23:22 → ERH 04-19 03:40 → 5RNO 04-19 04:54 → OBSVTOIN 04-20 07:58
PROVIDERS: ADMIT Internal Medicine; ATTEND Internal Medicine
DX: N30.90 Cystitis, unspecified without hematuria (principal); N40.0 Benign prostatic hyperplasia without lower urinary tract symptoms; B96.20 Unspecified Escherichia coli [E. coli] as the cause of diseases classified elsewhere; E11.9 Type 2 diabetes mellitus without complications; E78.00 Pure hypercholesterolemia, unspecified; E78.5 Hyperlipidemia, unspecified; I10 Essential (primary) hypertension; K21.9 Gastro-esophageal reflux disease without esophagitis; K59.00 Constipation, unspecified; K76.0 Fatty (change of) liver, not elsewhere classified; R16.2 Hepatomegaly with splenomegaly, not elsewhere classified; Z98.84 Bariatric surgery status; Z79.84 Long term (current) use of oral hypoglycemic drugs